=== PATIENT | female | born 1950 | race African-American/Black ===

== ENCOUNTER 2017-07-06 17:49 | Emergency (ER) | payer MEDICARE ==
[~2017-07-06] VITALS: Ht 162.6 cm; Wt 110.0 kg
[2017-07-06] MEDS ORDERED: HYDROXYCHLOR200 MG PO (18:27)
[2017-07-06] MEDS ORDERED: GLIMEPIRIDE2 MG PO (18:27)
[2017-07-06] MEDS ORDERED: OMEPRAZOLE20 M2 PO (18:27)
[2017-07-06] MEDS ORDERED: NORCO1 TA2 PO (18:28)
[2017-07-06] MEDS ORDERED: PREDNISONE5 MG PO (18:28)
[2017-07-06] MEDS ORDERED: PAROXETINE HCL40 MG PO (18:28)
[2017-07-06] MEDS ORDERED: AMLODIPINE BESYL5 MG PO (18:29)
[2017-07-06] MEDS ORDERED: ATENOLOL50 MG PO (18:29)
[2017-07-06] MEDS ORDERED: LASIX 40 MG TAB40 MG PO (18:30)
[2017-07-06] MEDS ORDERED: GABAPENTIN800 MG PO (18:30)
[2017-07-06 18:57] LABS: URINE BILIRUBIN - DIPSTICK NEGATIVE (NEGATIVE); URINE BLOOD DIPSTICK LARGE (NEGATIVE); URINE COLOR YELLOW; URINE GLUCOSE - DIPSTICK 250 mg/dL (NEGATIVE); URINE KETONE TRACE mg/dL (NEGATIVE); URINE NITRITE - DIPSTICK NEGATIVE (Negative); URINE PROTEIN - DIPSTICK 100 mg/dL (NEG-TRACE); URINE SPECIFIC GRAVITY >=1.030; URINE UROBILINOGEN - DIPSTICK 0.2 E.U./dL (0.2)
[2017-07-06 18:58] LABS: URINE CLARITY CLOUDY; URINE LEUK ESTERASE MODERATE (NEGATIVE)
[2017-07-06] MEDS ORDERED: PYRIDIUM200 MG PO (19:01)
[2017-07-06] MEDS ORDERED: CIPROFLOXACN500 MG PO (19:01)
[2017-07-06 19:03] LABS: URINE BACTERIA FEW hpf; URINE RBC TNTC RBC/hpf (0-5); URINE SQUAMOUS EPITHELIAL CELL FEW EPI/hpf (0-FEW); URINE WBC 20-50 WBC/hpf (0-5)
[2017-07-06 19:15] VITALS: BP 116/69
== END 2017-07-06 19:17 | disposition home or self-care (01) ==
LOC: ED 17:49
PROVIDERS: Emergency Medicine
DX: N39.0 Urinary tract infection, site not specified (principal); I10 Essential (primary) hypertension; E11.9 Type 2 diabetes mellitus without complications; F17.290 Nicotine dependence, other tobacco product, uncomplicated; Z85.3 Personal history of malignant neoplasm of breast

== ENCOUNTER 2019-04-18 17:11 | Emergency (ER) | payer MEDICARE ==
[~2019-04-18] VITALS: Ht 162.6 cm; Wt 109.0 kg
[~2019-04-18 17:11] MED LIST: AMLODIPINE BESYL5 MG PO; ATENOLOL50 MG PO; CIPROFLOXACN500 MG PO; GABAPENTIN800 MG PO; GLIMEPIRIDE2 MG PO; HYDROXYCHLOR200 MG PO; LASIX 40 MG TAB40 MG PO; NORCO1 TA2 PO; OMEPRAZOLE20 M2 PO; PAROXETINE HCL40 MG PO; PREDNISONE5 MG PO; PYRIDIUM200 MG PO
[2019-04-18 18:43] VITALS: BP 141/80
== END 2019-04-18 18:46 | disposition home or self-care (01) ==
LOC: ED 17:11
DX: S80.02XA Contusion of left knee, initial encounter (principal); E11.9 Type 2 diabetes mellitus without complications; I10 Essential (primary) hypertension; F17.200 Nicotine dependence, unspecified, uncomplicated; W01.0XXA Fall on same level from slipping, tripping and stumbling without subsequent striking against object, initial encounter; Y92.009 Unspecified place in unspecified non-institutional (private) residence as the place of occurrence of the external cause

== ENCOUNTER 2019-11-03 | Emergency (ER) | payer MEDICARE ==
[2019-11-03] MEDS ORDERED: SIMVASTATIN5 MG PO (16:24)
[2019-11-03] MEDS ORDERED: GENTAK0.32 OD (16:44)
== END 2019-11-03 16:57 | disposition home or self-care (01) ==
DX: S05.01XA Injury of conjunctiva and corneal abrasion without foreign body, right eye, initial encounter (principal); E11.9 Type 2 diabetes mellitus without complications; I10 Essential (primary) hypertension; X58.XXXA Exposure to other specified factors, initial encounter

== ENCOUNTER 2020-01-07 | Emergency (ER) | payer MEDICARE ==
[~2020-01-07] MED LIST changes: +GENTAK0.32 OD; +SIMVASTATIN5 MG PO
[2020-01-07] MEDS ORDERED: TRAMADOL HCL50 MG PO (14:43)
== END 2020-01-07 15:05 | disposition home or self-care (01) ==
DX: S92.352A Displaced fracture of fifth metatarsal bone, left foot, initial encounter for closed fracture (principal); E11.9 Type 2 diabetes mellitus without complications; I10 Essential (primary) hypertension; W22.09XA Striking against other stationary object, initial encounter; Y92.009 Unspecified place in unspecified non-institutional (private) residence as the place of occurrence of the external cause

== ENCOUNTER 2021-12-03 20:39 | Emergency (ER) | payer MEDICARE ==
[~2021-12-03] VITALS: Ht 162.6 cm; Wt 127.0 kg
[~2021-12-03 20:39] MED LIST changes: +TRAMADOL HCL50 MG PO
[2021-12-03 21:09] LABS: HEMATOCRIT 43.4 % (37.0-47.0); HEMOGLOBIN 13.1 g/dl (12.0-16.0); IMMATURE GRANULOCYTES 0.6 % (0.0-5.0); MEAN CELL VOLUME 93.9 fL CALC (80.0-100.0); MEAN CORPUSCULAR HGB 28.4 pG CALC (26.0-32.0); MEAN CORPUSCULAR HGB CONC 30.2 g/dL CAL (32.0-36.0); NEUT# 2.98 thou/uL (2.00-7.15); RED BLOOD COUNT 4.62 mill/uL (4.20-5.60); RED CELL DISTRI WIDTH 14.3 % (11.5-15.5)
[2021-12-03 21:37] LABS: ALBUMIN 4.1 g/dL (3.2-5.0); CREATININE 1.6 mg/dL (0.5-1.0); TOTAL PROTEIN 8.2 g/dL (6.3-8.2)
[2021-12-03 21:42] LABS: BILIRUBIN, TOTAL 0.5 mg/dL (0.0-1.4); POTASSIUM 3.3 mmol/l (3.5-5.1)
[2021-12-03 22:07] LABS: URINE BLOOD DIPSTICK TRACE-LYSED (NEGATIVE); URINE COLOR YELLOW; URINE GLUCOSE - DIPSTICK NEGATIVE (NEGATIVE); URINE KETONE TRACE mg/dL (NEGATIVE); URINE LEUK ESTERASE TRACE (NEGATIVE); URINE PH 5.5 (4.5-8.0); URINE PROTEIN - DIPSTICK 100 mg/dL (NEG-TRACE); URINE SPECIFIC GRAVITY >=1.030; URINE UROBILINOGEN - DIPSTICK 0.2 E.U./dL (0.2)
[2021-12-03 22:11] LABS: URINE BILIRUBIN - DIPSTICK MODERATE (NEGATIVE); URINE NITRITE - DIPSTICK NEGATIVE (Negative)
[2021-12-03 22:17] LABS: URINE BACTERIA MANY hpf; URINE SQUAMOUS EPITHELIAL CELL FEW EPI/hpf (0-FEW)
[2021-12-03] MEDS ORDERED: [UNRECOGNIZED DRUG - REMARK] (23:21)
[2021-12-03] MEDS ORDERED: BACTRIM DS1 TAB PO (23:33)
[2021-12-03] MEDS ORDERED: PROMETHAZINE HY25 M1 PO (23:33)
[2021-12-03 23:54] VITALS: BP 116/58
== END 2021-12-03 23:54 | disposition home or self-care (01) ==
LOC: ED 20:39
PROVIDERS: Family Medicine
DX: N39.0 Urinary tract infection, site not specified (principal); E11.22 Type 2 diabetes mellitus with diabetic chronic kidney disease; I12.9 Hypertensive chronic kidney disease with stage 1 through stage 4 chronic kidney disease, or unspecified chronic kidney disease; N18.9 Chronic kidney disease, unspecified; B96.20 Unspecified Escherichia coli [E. coli] as the cause of diseases classified elsewhere
CPT/HCPCS: Q9967; S0164

== ENCOUNTER 2022-03-14 14:45 | Observation (INO) | payer MEDICARE ==
[~2022-03-14] VITALS: Ht 162.6 cm; Wt 120.0 kg
[~2022-03-14 14:45] MED LIST changes: +BACTRIM DS1 TAB PO; +PROMETHAZINE HY25 M1 PO; +[UNRECOGNIZED DRUG - REMARK]
[2022-03-14 15:30] LABS: IMMATURE GRANULOCYTES 0.2 % (0.0-5.0); MEAN CORPUSCULAR HGB 30.8 pG CALC (26.0-32.0); MEAN CORPUSCULAR HGB CONC 30.3 g/dL CAL (32.0-36.0); NEUT# 15.37 thou/uL (2.00-7.15); RED BLOOD COUNT 3.41 mill/uL (4.20-5.60); RED CELL DISTRI WIDTH 14.4 % (11.5-15.5)
[2022-03-14 15:33] LABS: HEMATOCRIT 34.7 % (37.0-47.0); HEMOGLOBIN 10.5 g/dl (12.0-16.0); MEAN CELL VOLUME 101.8 fL CALC (80.0-100.0)
[2022-03-14 15:47] LABS: ALKALINE PHOSPHATASE 146 u/l (38-126); ANION GAP 11 (6-22 (CALC)); BILIRUBIN, TOTAL 0.3 mg/dL (0.0-1.4); CARBON DIOXIDE 30 mmol/l (22-30); CHLORIDE 104 mmol/l (95-108); GFR FOR AFR.AMER. > 60 ML/MIN (>=60 (CALC)); GFR OTHER RACES 55 ML/MIN (>=60 (CALC)); SGOT/AST 29 u/l (9-36); SODIUM 140 mmol/l (137-146); TOTAL PROTEIN 7.8 g/dL (6.3-8.2)
[2022-03-14 15:49] LABS: BUN 14 mg/dL (8-23); BUN/CREATININE RATIO 14 (12-20 (CALC)); POTASSIUM 4.5 mmol/l (3.5-5.1)
[2022-03-14] MEDS ORDERED: HYDROCO/APAP1 T10 PO (16:33)
[2022-03-14] MEDS ORDERED: OMEPRAZOLE DR40 MG PO (16:34)
[2022-03-14] MEDS ORDERED: ENALAPRIL10 MG PO (16:35)
[2022-03-14] MEDS ORDERED: PAROXETINE40 M1 PO (16:35)
[2022-03-14] MEDS ORDERED: GLIPIZIDE ER5 MG PO (16:36)
[2022-03-14] MEDS ORDERED: ISORDIL10 MG PO (16:39)
[2022-03-14] MEDS ORDERED: FLEXERIL5 M1 PO (16:40)
[2022-03-14] MEDS ORDERED: KLOR-CON M2020 MEQ PO (16:41)
[2022-03-14] MEDS ORDERED: GABAPENTIN100 MG PO (16:41)
[2022-03-14] MEDS ORDERED: ASPIRIN325 MG PO (16:42)
[2022-03-14] MEDS ORDERED: ATENOLOL50 MG PO (16:42)
[2022-03-14] MEDS ORDERED: SIMVASTATIN10 MG PO (16:43)
[2022-03-14] MEDS ORDERED: RYBELSUS3 MG PO (16:44)
[2022-03-14] MEDS ORDERED: HYDROXYCHLOR200 M1 PO (16:44)
[2022-03-14 19:27] VITALS: BP 175/85
[2022-03-15 00:07] VITALS: BP 151/77
[2022-03-15 04:20] VITALS: BP 157/80
[2022-03-15 05:21] LABS: HEMATOCRIT 33.2 % (37.0-47.0); MEAN CELL VOLUME 102.2 fL CALC (80.0-100.0); MEAN CORPUSCULAR HGB 30.8 pG CALC (26.0-32.0); MEAN CORPUSCULAR HGB CONC 30.1 g/dL CAL (32.0-36.0); RED BLOOD COUNT 3.25 mill/uL (4.20-5.60); RED CELL DISTRI WIDTH 14.6 % (11.5-15.5)
[2022-03-15 05:45] LABS: CREATININE 1.2 mg/dL (0.5-1.0); MAGNESIUM 2.3 mg/dL (1.6-2.3); POTASSIUM 4.4 mmol/l (3.5-5.1)
[2022-03-15 07:13] VITALS: BP 165/82
[2022-03-15 10:44] VITALS: BP 166/93
[2022-03-16 00:15] VITALS: BP 114/96
[2022-03-16 05:06] LABS: HEMATOCRIT 37.4 % (37.0-47.0); HEMOGLOBIN 11.2 g/dl (12.0-16.0); IMMATURE GRANULOCYTES 0.3 % (0.0-5.0); MEAN CELL VOLUME 101.6 fL CALC (80.0-100.0); MEAN CORPUSCULAR HGB 30.4 pG CALC (26.0-32.0); MEAN CORPUSCULAR HGB CONC 29.9 g/dL CAL (32.0-36.0); NEUT# 12.16 thou/uL (2.00-7.15); RED BLOOD COUNT 3.68 mill/uL (4.20-5.60); RED CELL DISTRI WIDTH 14.1 % (11.5-15.5)
[2022-03-16 05:33] LABS: CREATININE 1.1 mg/dL (0.5-1.0); MAGNESIUM 2.5 mg/dL (1.6-2.3); POTASSIUM 4.8 mmol/l (3.5-5.1)
[2022-03-16 07:20] VITALS: BP 198/104
[2022-03-16 08:00] VITALS: BP 198/104
[2022-03-16 10:31] VITALS: BP 198/92
[2022-03-16] MEDS ORDERED: VANTIN200 M1 PO (13:26)
[2022-03-16] MEDS ORDERED: ZITHROMAX250 MG PO (13:27)
[2022-03-16] MEDS ORDERED: MEDDOSEPAK PO (13:30)
[2022-03-16] MEDS ORDERED: VENTOLIN HFA108 MCG IN (13:31)
[2022-03-16 15:06] VITALS: BP 182/91
== END 2022-03-16 16:13 | disposition home or self-care (01) ==
LOC: ED 14:45 → ED-I 16:29 → ED 17:48 → MS2 17:49
PROVIDERS: Family Medicine; Nurse Practitioner; ADMIT Hospitalist; ATTEND Hospitalist
DX: J18.9 Pneumonia, unspecified organism (principal); J44.0 Chronic obstructive pulmonary disease with (acute) lower respiratory infection; R09.02 Hypoxemia; I12.9 Hypertensive chronic kidney disease with stage 1 through stage 4 chronic kidney disease, or unspecified chronic kidney disease; E11.22 Type 2 diabetes mellitus with diabetic chronic kidney disease; N18.9 Chronic kidney disease, unspecified; Z79.84 Long term (current) use of oral hypoglycemic drugs; Z87.891 Personal history of nicotine dependence; Z20.822 Contact with and (suspected) exposure to COVID-19
CPT/HCPCS: G0378; J1650